=== PATIENT | male | born 1990 | race Asian ===

== ENCOUNTER 2018-05-25 16:17 | Emergency (ER) | payer OTHER ==
[2018-05-25] MEDS ORDERED: MAG HYDROX/AL HYDROX/SIMETH 30 ML UDCUP PO ONE (16:35)
[2018-05-25] MEDS ORDERED: LIDOCAINE 2% VISCOUS 15 ML UDCUP PO ONE (16:35)
--- NOTE | 2018-05-25 16:57 | EDPHY ---
H & P Stated Complaint: MILD MIDSTERNAL CP INTERMITTENTLY SINCE SUNDAY/DENIES DRUG USE Time Seen by Provider: 05/25/18 16:30 HPI/ROS: Chief Complaint: Chest pain HPI: 27-year-old male with no significant past medical history presenting with central chest pain for the last 2 days. Patient states he came on gradually. Is about a 3 to 4/10. Is in his central chest area nonradiating. He has also had some mild epigastric pain. No nausea or vomiting. No chest pain shortness of breath. There are no aggravating or alleviating factors. Is described as a pressure. He thinks that might be reflux but is not taking any medicine. Does not have a history of similar in the past. No past medical history. No family history of coronary artery disease. No risk factors for coronary disease. ROS: 10 systems were reviewed and were negative except those elements noted in the HPI. PMH: Denies Social History: No smoking, occasional alcohol, occasional marijuana Family History: non-contributory Physical Exam: Gen: Awake, Alert, No Distress HEENT: Nose: no rhinorrhea Eyes: PERRLA, EOMI Mouth: Moist mucosa Neck: Supple, no JVD Chest: nontender, lungs clear to auscultation Heart: S1, S2 normal, no murmur Abd: Soft, mild epigastric tenderness, no guarding Back: no CVA tenderness, no midline tenderness Ext: no edema, non-tender Skin: no rash Neuro: CN II-XII intact, Sensation grossly intact, Strength 5/5 in bilateral upper and lower extremities - Personal History Current Tetanus Diphtheria and Acellular Pertussis (TDAP): Unsure - Medical/Surgical History Hx Asthma: No Hx Chronic Respiratory Disease: No Hx Diabetes: No Hx Cardiac Disease: No Hx Renal Disease: No Hx Cirrhosis: No Hx Alcoholism: No Hx HIV/AIDS: No Hx Splenectomy or Spleen Trauma: No Other PMH: DENIES - Social History Smoking Status: Never smoked Constitutional: Initial Vital Signs Temperature (C) 36.4 C 05/25/18 16:20 Heart Rate 70 05/25/18 16:20 Respiratory Rate 18 05/25/18 16:20 Blood Pressure 124/90 H 05/25/18 16:20 O2 Sat (%) 93 05/25/18 16:20 O2 Delivery Mode Room Air Allergies/Adverse Reactions: No Known Allergies Allergy (Verified 05/25/18 16:24) Home Medications: Medication Instructions Recorded NK [No Known Home Meds] 05/25/18 Medical Decision Making - Diagnostics EKG Interpretation: ECG time 4:33 p.m., sinus rhythm with a rate of 60, normal axis, normal intervals, no acute ST or T-wave changes. Impression: Normal ECG. Imaging Results: Imaging Impressions Chest X-Ray 05/25/18 16:46 IMPRESSION: Normal chest x-ray. ED Course/Re-evaluation: 27-year-old with 2 days of atypical chest pain. ECG is normal. Troponin is negative. Chest x-ray is negative. He is improved after GI cocktail. Will discharge with follow-up as an outpatient, return for any concerns. - Data Points Laboratory Results: 05/25/18 16:33 POC Troponin I 0.00 ng/mL ng/mL (0.00-0.08) Medications Given: Discontinued Medications Al Hydroxide/Mg Hydroxide (Maalox Susp) 30 ml PO ONCE ONE Stop: 05/25/18 16:36 Last Admin: 05/25/18 16:39 Dose: 30 ml Lidocaine (Lidocaine 2% Viscous) 15 ml PO ONCE ONE Stop: 05/25/18 16:36 Last Admin: 05/25/18 16:39 Dose: 15 ml Point of Care Test Results: Chemistry 05/25/18 16:33 POC Troponin I 0.00 ng/mL ng/mL (0.00-0.08) Departure - Departure Disposition: Home, Routine, Self-Care Clinical Impression: Atypical chest pain Condition: Good Instructions: Chest Pain (ED) Additional Instructions: I recommend you start taking [id number] antacid medications such as Pepcid. Follow up with primary care physician in 3-4 days for further evaluation. Return to the emergency department for increasing chest pain, shortness of breath, lightheadedness, fainting, or any other concerns. Referrals: Yuni Bhatia MD [Primary Care Provider] - As per Instructions
[2018-05-25 17:41] VITALS: BP 114/79
--- NOTE | 2018-05-25 18:23 | CPEKG ---
Test Reason : OPEN Blood Pressure : / mmHG Vent. Rate : 060 BPM Atrial Rate : 060 BPM P-R Int : 158 ms QRS Dur : 097 ms QT Int : 384 ms P-R-T Axes : 058 088 067 degrees QTc Int : 384 ms Sinus rhythm Confirmed by Nakul Valladares ([id number]) on 05/25/2018 6:22:10 PM Referred By: Confirmed By:Nakul Valladares
== END 2018-05-25 17:40 | disposition home or self-care (01) ==
DX: R07.89 Other chest pain (principal)
CPT/HCPCS: 84484-PO

== ENCOUNTER → 2018-07-06 | Outpatient (CLI) | payer OTHER | LOC: FIMAGING 15:10 | PROVIDERS: ATTEND Psychiatry & Neurology Neurology | DX: G37.9 Demyelinating disease of central nervous system, unspecified (principal) ==